=== PATIENT | male | born 1980 | race Caucasian/White ===

== ENCOUNTER 2020-03-16 19:19 | Emergency (ER) | payer BC, SELFPAY ==
[2020-03-16] VITALS (7 sets, daily range): BP systolic 117–151; BP diastolic 76–91; PULSE 75–81; RESP 14–19; TEMP 36.9; O2SAT 95–100; BMI 30.4
--- NOTE | 2020-03-16 19:53 | XRR_ITS ---
PROCEDURE INFORMATION: Exam: XR Left Ankle Exam date and time: 03/16/2020 8:13 PM Age: 39 years old Clinical indication: Injury or trauma; Initial encounter; Blunt trauma; Injury date: 03/16/20; Injury details: 8-10 ft fall from tree stand left ankle deformity; Additional info: Injury with pain and deformity TECHNIQUE: Imaging protocol: XR Left ankle. Views: Frontal, lateral, and oblique views. COMPARISON: No relevant prior studies available. FINDINGS: Bones/joints: Transverse fracture near the base of the tibial medial malleolus, with 6.9 mm lateral displacement of the distal malleolar fragment and talus. Oblique comminuted fracture of the distal fibula ascending from the level of the ankle joint superior laterally, with mild fracture site overriding. Lateral fracture of the distal tibia including the lateral plafond and and lateral metadiaphysis, with external rotation of the fragment and 9 mm of articular surface gap. Valgus alignment at the ankle. Soft tissues: Soft tissue swelling. XR/XR ankle LT min 3V* [id number] IMPRESSION: Acute ankle fracture-subluxation.
--- NOTE | 2020-03-16 20:01 | ED_ITS ---
HPI - Extremity Problem General: Chief complaint: Extremity Injury, Lower Stated complaint: leg injury Time Seen by Provider: 03/16/20 19:53 History of Present Illness: HPI Narrative: Patient is a 39-year-old male comes to the ED with left ankle pain and injury. Injury occurred just prior to arrival. Patient was on a ladder trying to move deer stand and the ladder tipped and fell over. Patient says he fell approximately 8 to 10 feet landing straight on his feet. He immediate felt pain in his left ankle. He tried to stand up and put a little bit of weight on left ankle and he felt a crunch. He currently has 8-9 out of 10 pain. Swelling all around left ankle. Associated symptoms: Deny chest pain, fever(s) or rash Review of Systems Const: Denies: fever(s), chills or fatigue Eyes: Denies: change in vision or eye discomfort ENMT: Denies: throat pain, odynophagia, nasal discharge or nasal congestion Card: Denies: chest pain, palpitations, edema, swelling of feet/ankles, dyspnea on exertion or orthopnea Resp: Denies: dyspnea, productive cough or non-productive cough GI: Denies: abdominal pain, nausea, vomiting, diarrhea, constipation or hematochezia : Denies: flank pain, difficulty urinating, dysuria or hematuria Musc: Reports: extremity pain (left ankle injury ) and extremity swelling (left ankle); Denies: neck pain or back pain Skin/Breast: Denies: rash or new lesions Neuro: Denies: headache(s), numbness in extremities or weakness in extremities Physical Exam Const: COMMON NORMALS: no acute distress, patient oriented x3 and alert GENERAL APPEARANCE: cooperative; not comfortable (uncomfortable due to pain in ankle) HENMT: COMMON NORMALS: normocephalic HEAD & SCALP: normocephalic MOUTH: Normal oral and palatal mucosa present THROAT: posterior oropharynx normal and uvula midline Neck/C-Spine: COMMON NORMALS: supple GENERAL: Yes normal visual inspection Resp: COMMON NORMALS: normal respiratory effort, No retractions, No use of accessory muscles and clear to auscultation bilaterally AUSCULTATION: clear to auscultation bilaterally Cardio: COMMON NORMALS: regular rate, regular rhythm, S1 normal heart sound present, S2 normal heart sound present, No gallops present (Cardio), No clicks present (Cardio), No murmurs present (Cardio) and Peripheral pulses 2+ throughout RATE: regular rate RHYTHM: regular rhythm HEART SOUNDS: S1 normal heart sound present and S2 normal heart sound present PERIPHERAL PULSES: Peripheral pulses 2+ throughout GI: COMMON NORMALS: Normal to inspection, nondistended, normoactive bowel sounds present, Soft to palpation, non-tender and no masses PALPATION: Yes Soft to palpation : COMMON NORMALS: Yes no CVA tenderness BLADDER/KIDNEY EXAM: Yes no CVA tenderness Back/Pelvis: COMMON NORMALS: no CVA tenderness Extremity: NARRATIVE EXTREMITY EXAM: Patient has visible significant edema all around the left ankle with some ecchymosis setting in. Left ankle tender to palpation on the lateral and medial malleolus. Limited range of motion due to pain. No visible open wounds or bones protruding out of skin. Pedal pulse 2+, cap refill normal and sensation to foot intact. GENERAL: Yes normal exam except as noted Neuro: COMMON NORMALS: patient oriented x3 and moves all extremities SENSORIUM/ORIENTATION: Yes alert Skin: COMMON NORMALS: no rashes or lesions noted GENERAL SKIN EXAM: no rashes or lesions noted and dry skin Course Vital Signs: Vital signs: Vital Signs Temperature 98.4 F 03/16/20 19:36 Pulse Rate 76 03/16/20 20:25 Respiratory Rate 19 H 03/16/20 21:17 Blood Pressure 137/91 03/16/20 20:25 Pulse Oximetry 100 03/16/20 21:17 MDM - Extremity (Nontraumatic) MDM Narrative: Medical decision making narrative: Patient is a 39-year-old male comes the ED with left ankle injury. Patient fell approximately 8 to 10 feet landing on feet and injuring left ankle. Patient has visible edema all around the left ankle with some ecchymosis setting in. Left ankle tender to palpation on the lateral and medial malleolus. Limited range of motion due to pain. No visible open wounds or bones protruding out of skin. Pedal pulse 2+, cap refill normal and sensation to foot intact. X-ray showed distal oblique fracture of fibula and medial malleolus fracture tibia. Referral to Ortho placed with case management. Patient was told the behavioral health case manager will contact them in the next day or 2 to set up an appoint with orthopedic. Patient put in posterior leg with stirrup splint and given crutches and told to [id number] on the left foot. Keep splint on and dry. Patient was given a prescription for hydrocodone for pain. Return to ED precautions given. Patient understood and agree with plan. Imaging Data^: Xray Ortho: Attestation: I personally reviewed and interpreted this imaging study as follows: My impression: Left ankle x-ray shows distal oblique fracture of fibula and medial malleolus fracture tibia. Discharge Plan Discharge Patient Disposition: Home Clinical Impression: Ankle fracture, left Qualifiers: Encounter type: initial encounter Fracture type: closed Qualified Code(s): S82.892A - Other fracture of left lower leg, initial encounter for closed fracture Condition: Stable Prescriptions: No Action losartan 50 mg tablet 50 mg PO BID RF: 0 lamotrigine 200 mg tablet 200 mg PO DAILY RF: 0 clonazepam 0.5 mg tablet 0.5 mg PO BID RF: 0 lithium carbonate 300 mg tablet extended release 300 mg PO DAILY RF: 0 trazodone 100 mg tablet 100 mg PO BEDTIME RF: 0 dextroamphetamine-amphetamine 15 mg tablet 15 mg PO DAILY RF: 0 Vyvanse 30 mg capsule 30 mg PO DAILY RF: 0 L-Methylfolate 15 mg tablet 15 mg PO DAILY RF: 0 Discharge Orders: Discharge Order (Routine); Ordered 03/16/20 Ordered By: Alexi Osman Discharge Diet: Regular Discharge Activity: Limit activity as instructed and Use walker/crutches as instructed Patient Instructions: Ankle Fracture (ED) Activity Restrictions/Additional Instructions: Follow-up with medical provider as directed. Case management will be contacting you in the next day or 2 to set up an appointment with Orthopedic Doctor. take medications as prescribed. Use crutches keep splint on and dry and no weightbearing on left leg. Return to the ER or your medical provider if condition worsens. Please read and understand discharge instructions. If any questions, please ask. Coding Level of Care Code ED [employer] Developer for Ruby Ramos Exam Comprehensive
[2020-03-16] MEDS: ondansetron 2 mg/ML SDV 2 mL 4 MG IVP ×2 (20:22→21:20)
[2020-03-16] MEDS: morphine 4 mg/mL SDV 1 mL IVP (20:23)
[2020-03-16] MEDS: HYDROmorphone 1 mg/mL INJ 1 mL IVP (21:17)
[2020-03-16] MEDS: HYDROcodone-acetaminophen 7.5-325 mg Tablet 2 TAB PO (22:20)
[2020-03-16] MEDS: metoclopramide 5 mg/mL SDV 2 mL 10 MG IVP (22:21)
--- NOTE | 2020-03-17 12:13 | DCPLANNER ---
assistant product manager had message to schedule a follow up appointment for ortho. Patient called case management rn requesting that case management rn send referral to [facility]. assistant product manager called [facility] at [phone] and was told that fax patients records to [facility]. assistant product manager faxed patients records to [phone]. Clinic will call patient with appointment information, and case management rn will call for appointment information.
--- NOTE | 2020-03-18 14:16 | DCPLANNER ---
Patient had a follow up appointment scheduled for 03.18.20 with Trish garces - patient did attend the appointment.
== END 2020-03-16 22:25 | disposition home or self-care (01) ==
PROVIDERS: Emergency Provider Physician Assistant
DX: S82.432A Displaced oblique fracture of shaft of left fibula, initial encounter for closed fracture (principal); S82.52XA Displaced fracture of medial malleolus of left tibia, initial encounter for closed fracture; W11.XXXA Fall on and from ladder, initial encounter
CPT/HCPCS: 12345; 29515; 73610; 96374; 96375; 96376; 99283; E0114; J1170; J2270; J2405; J2765